=== PATIENT | female | born 1980 | race Caucasian/White ===

== ENCOUNTER → 2016-09-23 | Outpatient (REF) | payer OTHER | LOC: M SFHCLERA 11:51 | PROVIDERS: ATTEND Physician Assistant | DX: L02.415 Cutaneous abscess of right lower limb (principal) ==

== ENCOUNTER → 2021-01-07 | Outpatient (CLI) | payer BC, OTHER ==
[~2021-01-07] MED LIST: BUSP1TAB PO; CETI10CA2 PO; CLON0.5T17 PO; HYOS1TAB10 PO; OXYC1TAB23 PO; PRIL20TA2 PO; PROA1AER2 INH; THERTAB52 PO
== END ==
LOC: M LABSMTC 11:20
PROVIDERS: ATTEND Anesthesiology
DX: Z01.818 Encounter for other preprocedural examination (principal); Z11.52 Encounter for screening for COVID-19

== ENCOUNTER 2021-01-12 06:12 | Day surgery (SDC) | payer BC, OTHER ==
[~2021-01-12] VITALS: Ht 152.4 cm; Wt 49.9 kg
[~2021-01-12 06:12] MED LIST changes: +LR 1,000 ML IV ONE; -OXYC1TAB23 PO; +ceFAZolin SOD 1 GM in D5W MINI-BAG PLUS 50 ML IV ONE
[2021-01-12] MEDS ORDERED: BUPIVACAINE LIPOSOME/PF 1.3% 20ML VIAL (13.3MG/ML)(EXPAREL)(C9290 PER1MG) As Ordered ONE (07:12)
[2021-01-12] MEDS ORDERED: BACITRACIN PWD 50,000 UNITS VIAL As Ordered ONE (07:12)
[2021-01-12] MEDS ORDERED: ROCURONIUM BROMIDE 50 MG/5 ML VIAL As Ordered ONE (07:21)
[2021-01-12] MEDS ORDERED: LIDOCAINE 2% 100MG/5ML SDV (FOR ANES.) As Ordered ONE (07:21)
[2021-01-12] MEDS ORDERED: propofoL 200 MG/20 ML VIAL As Ordered ONE ×2 (07:21→07:47)
[2021-01-12] MEDS ORDERED: dexameTHASONE 4 MG/ML 1ML VIAL (J1100 PER 1MG) As Ordered ONE (07:21)
[2021-01-12] MEDS ORDERED: fentaNYL 250 MCG/5 ML INJECTION (J3010) As Ordered ONE (07:21)
[2021-01-12] MEDS ORDERED: MIDAZOLAM INJ 2MG/2ML VIAL (J2250 PER 1MG) As Ordered ONE (07:22)
[2021-01-12] MEDS ORDERED: ESMOLOL INJ 100MG/10ML VIAL As Ordered ONE (08:06)
[2021-01-12] MEDS ORDERED: HYDROmorphone HCL 2 MG/ML 1ML VIAL (J1170) As Ordered ONE ×2 (08:38→11:03)
[2021-01-12] MEDS ORDERED: ACETAMINOPHEN 1000MG 100ML IV BTL (OFIRMEV) (J0131 PER 10MG) As Ordered ONE ×2 (08:38→11:03)
[2021-01-12] MEDS ORDERED: ONDANSETRON 4MG/2ML VIAL As Ordered ONE (08:57)
[2021-01-12] MEDS ORDERED: LACRILUBE (AKWA TEARS) OPHTH OINT 3.5 GM As Ordered ONE (09:08)
--- NOTE | 2021-01-12 09:28 | ROOPDOC ---
[facility] Report Of Operation Report of Operation DATE OF PROCEDURE: 01/12/21 PREOPERATIVE DIAGNOSIS: Bilateral hypomastia POSTOPERATIVE DIAGNOSIS: same FINDINGS: loss of volume breasts PROCEDURE: Bilateral breast augmentation SURGEON: Dr Munroe ANESTHESIA: General SPECIMENS: none ESTIMATED BLOOD LOSS: 20 cc REPLACED: none DRAINS: none IMPLANTS: [employer] 215 cc smooth moderate plus profile Xtra COMPLICATIONS: none POSTOPERATIVE CONDITION: stable This is a 32-year-old female who presents to our office complaining of loss of volume of both breasts. Informed consent obtained from the patient for bilateral breast augmentation. Risk, benefits, and alternatives were discussed with the patient in detail, and she is ready to proceed. Patient was marked in the upright position in preoperative area. She was brought into the operating room and placed in supine position. General anesthesia was induced, pre operative antibiotics were given, sequential compression devices applied. She was prepped and draped in the usual sterile fashion. We started our procedure on the right side. Inframammary incision was carried out 3 cm width on the right side. Was started dissection to create a subglandular pocket for the implant. Dissection was done under direct vision with lighted retractor. Electrocautery was used for hemostasis. Patient has substantial glandular tissue to cover the implant. Wound is irrigated with bacitracin irrigation solution. 215 mL [employer] gel extra fill sizer was introduced in the pocket, which proven to be perfect fit for her frame. 215 mL [employer] smooth round gel moderate plus profile Xtra fill implant was introduced and a stab pectoral pocket on the right side without difficulties using non touch technique with Ayala funnel. Pocket closed in layers with 3-0 Vicryl sutures and 3-0 Monocryl sutures. Inframammary incision was carried out 3 cm width on the left side. Was started dissection to create a subglandular pocket for the implant. Dissection was done under direct vision with lighted retractor. Electrocautery was used for hemostasis. Wound is irrigated with bacitracin irrigation solution. 215 mL [employer] gel extra fill sizer was introduced in the pocket, which proven to be perfect fit for her frame. 215 mL [employer] smooth round gel moderate plus profile Xtra fill implant was introduced and a stab pectoral pocket on the right side without difficulties using non touch technique with Ayala funnel. Pocket closed in layers with 3-0 Vicryl sutures and 3-0 Monocryl sutures. Prinio dressing, gauze and occlusive dressing applied to incision. Support bra. Patient extubated in OR without difficulties, transferred to recovery room in stable condition. WENCESLAO MUNROE DO Jan 12, 2021 09:28
--- NOTE | 2021-01-12 09:28 | POST-OPPD ---
Postoperative Procedure Note Date Of Procedure: Jan 12, 2021 PREOPERATIVE DIAGNOSIS: Bilateral hypomastia POSTOPERATIVE DIAGNOSIS: same FINDINGS: loss of volume breasts PROCEDURE: Bilateral breast augmentation SURGEON: Dr Munroe ANESTHESIA: General SPECIMENS: none ESTIMATED BLOOD LOSS: 20 cc REPLACED: none DRAINS: none IMPLANTS: [employer] 215 cc smooth moderate plus profile Xtra COMPLICATIONS: none POSTOPERATIVE CONDITION: stable WENCESLAO MUNROE DO Jan 12, 2021 09:28
[2021-01-12] MEDS ORDERED: OXYC1TAB23 PO (09:33)
[2021-01-12] MEDS ORDERED: oxyCODONE 5MG TAB PO PRN (09:45)
[2021-01-12] MEDS ORDERED: HYDROMORPHONE HCL 0.5 MG/ 0.5 ML SYRINGE (J1170 PER 1) IV PRN (09:45)
[2021-01-12] MEDS ORDERED: LR 1,000 ML IV SCH (09:45)
[2021-01-12] MEDS ORDERED: ONDANSETRON 4MG/2ML VIAL IV PRN (09:45)
[2021-01-12] MEDS ORDERED: fentaNYL 100 MCG/2 ML INJECTION (J3010) IV PRN (09:45)
[2021-01-12 10:28] VITALS: BP 121/65
[2021-01-12] MEDS ORDERED: HEPARIN SOD (PORCINE) 5000UNITS/ML 1ML VIAL/SYRINGE As Ordered ONE (10:42)
[2021-01-12] MEDS ORDERED: SUGAMMADEX SODIUM 500 MG/5 ML VIAL (BRIDION) As Ordered ONE (11:03)
[2021-01-12] MEDS ORDERED: METOCLOPRAMIDE INJ 10MG/2ML VIAL (J2765 PER 1) As Ordered ONE (11:25)
== END 2021-01-12 11:00 | disposition home or self-care (01) ==
LOC: M SDC 06:12
PROVIDERS: ATTEND Plastic Surgery Surgery of the Hand
DX: N64.82 Hypoplasia of breast (principal); J45.998 Other asthma; L20.82 Flexural eczema; K21.9 Gastro-esophageal reflux disease without esophagitis; R53.83 Other fatigue; R73.01 Impaired fasting glucose; J30.9 Allergic rhinitis, unspecified; F32.9 Major depressive disorder, single episode, unspecified; Z91.018 Allergy to other foods; Z88.8 Allergy status to other drugs, medicaments and biological substances; Z87.891 Personal history of nicotine dependence
CPT/HCPCS: 19325; C9290; J0131; J0690; J1100; J1170; J1644; J2250; J2405; J2765; J3010; L8600

== ENCOUNTER → 2022-03-10 | Outpatient (CLI) | payer BC, OTHER ==
[~2022-03-10] MED LIST changes: -LR 1,000 ML IV ONE; +OXYC1TAB23 PO; +PERC5TAB12 PO; +PROAAER10 INH; +SULF400T14 PO; -ceFAZolin SOD 1 GM in D5W MINI-BAG PLUS 50 ML IV ONE
== END ==
LOC: M LABSMTC 09:36
PROVIDERS: ATTEND Anesthesiology
DX: Z20.828 Contact with and (suspected) exposure to other viral communicable diseases (principal); Z11.59 Encounter for screening for other viral diseases

== ENCOUNTER 2022-03-15 06:18 | Day surgery (SDC) | payer BC, OTHER ==
[~2022-03-15] VITALS: Ht 152.4 cm; Wt 49.6 kg
[~2022-03-15 06:18] MED LIST changes: -PERC5TAB12 PO; +ceFAZolin SOD 2 GM in IV 1 EA IV ONE
[2022-03-15] MEDS ORDERED: fentaNYL 100 MCG/2 ML INJECTION As Ordered ONE (07:04)
[2022-03-15] MEDS ORDERED: LIDOCAINE 2% 100MG/5ML SDV (FOR ANES.) As Ordered ONE (07:05)
[2022-03-15] MEDS ORDERED: ONDANSETRON 4MG/2ML VIAL As Ordered ONE (07:05)
[2022-03-15] MEDS ORDERED: dexameTHASONE 4 MG/ML 1ML VIAL (J1100 PER 1MG) As Ordered ONE (07:05)
[2022-03-15] MEDS ORDERED: MIDAZOLAM INJ 2MG/2ML VIAL (J2250 PER 1MG) As Ordered ONE (07:05)
[2022-03-15] MEDS ORDERED: propofoL 200 MG/20 ML VIAL As Ordered ONE ×2 (07:05→09:40)
[2022-03-15] MEDS ORDERED: ROCURONIUM BROMIDE 50 MG/5 ML VIAL As Ordered ONE (07:05)
[2022-03-15] MEDS ORDERED: BUPIVACAINE HCL 0.25% 10ML VIAL As Ordered ONE (07:17)
[2022-03-15] MEDS ORDERED: BUPIVACAINE LIPOSOME/PF 1.3% 20ML VIAL (13.3MG/ML)(EXPAREL) As Ordered ONE (07:18)
[2022-03-15] MEDS ORDERED: GENTAMICIN SULF 80MG/2ML VIAL As Ordered ONE (07:18)
[2022-03-15] MEDS ORDERED: SCOPOLAMINE 1MG TRANSDERMAL PATCH TOP STA (07:21)
[2022-03-15] MEDS ORDERED: LR 1,000 ML IV SCH ×2 (07:40→07:50)
[2022-03-15] MEDS ORDERED: PROMETHAZINE 25MG/ML 1ML VIAL IV PRN (07:50)
[2022-03-15] MEDS ORDERED: MEPERIDINE INJ 25 MG/ML VIAL (J2175) IV PRN (07:50)
[2022-03-15] MEDS ORDERED: ONDANSETRON 4MG/2ML VIAL IV PRN (07:50)
[2022-03-15] MEDS ORDERED: oxyCODONE 5MG TAB PO PRN (07:50)
[2022-03-15] MEDS ORDERED: METOCLOPRAMIDE INJ 10MG/2ML VIAL (J2765 PER 1) IV PRN (07:50)
[2022-03-15] MEDS ORDERED: fentaNYL 100 MCG/2 ML INJECTION IV PRN (07:50)
[2022-03-15] MEDS ORDERED: ALBUTEROL SULFATE 2.5 MG/0.5 ML INH NEB SOLN INH PRN (07:50)
[2022-03-15] MEDS ORDERED: HYDROMORPHONE HCL 0.5 MG/ 0.5 ML SYRINGE (J1170 PER 1) IV PRN (07:50)
[2022-03-15] MEDS ORDERED: ACETAMINOPHEN 1000MG 100ML IV BTL (OFIRMEV) (J0131 PER 10MG) As Ordered ONE (08:08)
[2022-03-15] MEDS ORDERED: diphenhydrAMINE 50MG/ML VIAL (J1200) As Ordered ONE (08:08)
[2022-03-15] MEDS ORDERED: HYDROmorphone HCL 2MG/ML 1ML VIAL As Ordered ONE (08:23)
[2022-03-15] MEDS ORDERED: ALBUTEROL 6.7GM INHALER **FOR ANES. CART/OMNICELL ONLY As Ordered ONE (09:45)
[2022-03-15] MEDS ORDERED: METOCLOPRAMIDE INJ 10MG/2ML VIAL (J2765 PER 1) As Ordered ONE (10:44)
[2022-03-15] MEDS ORDERED: PERC5TAB12 PO (11:33)
[2022-03-15] MEDS ORDERED: diphenhydrAMINE 50MG/ML VIAL (J1200) IV PRN (11:55)
[2022-03-15 13:10] VITALS: BP 128/75
== END 2022-03-15 13:10 | disposition home or self-care (01) ==
LOC: M SDC 06:18
PROVIDERS: ATTEND Plastic Surgery Surgery of the Hand
DX: T85.44XD Capsular contracture of breast implant, subsequent encounter (principal); J45.909 Unspecified asthma, uncomplicated; Z79.51 Long term (current) use of inhaled steroids; F41.9 Anxiety disorder, unspecified; F32.A Depression, unspecified; L20.82 Flexural eczema; K21.9 Gastro-esophageal reflux disease without esophagitis; R73.01 Impaired fasting glucose; F17.210 Nicotine dependence, cigarettes, uncomplicated; Z88.8 Allergy status to other drugs, medicaments and biological substances; Z91.018 Allergy to other foods; R21 Rash and other nonspecific skin eruption
CPT/HCPCS: 19316; 19342; 19370; 88300; 88302; C9290; J0131; J0690; J1100; J1170; J1200; J1580; J2175; J2250; J2405; J2765; J3010; L8600

== ENCOUNTER → 2024-07-02 | Outpatient (REF) | payer OTHER, BC ==
[~2024-07-02] MED LIST changes: +PERC5TAB12 PO; -ceFAZolin SOD 2 GM in IV 1 EA IV ONE
== END ==
LOC: M LAB REF 08:38
PROVIDERS: ATTEND Otolaryngology
DX: K13.79 Other lesions of oral mucosa (principal)